=== PATIENT | male | born 1985 | race Hispanic/Latino ===

== ENCOUNTER 2021-04-10 09:36 | Emergency (ER) | payer OTHER ==
[~2021-04-10] VITALS: Ht 167.6 cm; Wt 74.8 kg
[2021-04-10 09:38] VITALS: BP 129/76
[2021-04-10 12:51] VITALS: BP 114/79
[2021-04-10] MEDS ORDERED: 0.9%NACL 1000ML 1,000 ML IV ONE (13:00)
[2021-04-10 14:03] LABS: HEMATOCRIT 48.4 % (42-54); MEAN CORPUSCULAR HEMOGLOBIN 29.7 pg (27.0-33.0); MEAN CORPUSCULAR HGB CONC 33.3 g/dL (32.0-36.0); MEAN CORPUSCULAR VOLUME 89.1 fL (79-99); PLATELET COUNT (AUTO) 166 K/uL (130-400); RED BLOOD CELL COUNT(AUTO) 5.43 MIL/uL (4.50-6.20); RED CELL DISTRIBUTION WIDTH 12.8 % (11.0-15.5); WHITE BLOOD COUNT (AUTO) 4.8 K/uL (4.8-10.8)
[2021-04-10 14:15] LABS: CREATININE 1.1 mg/dL (0.5-1.5); POTASSIUM 3.6 mmol/L (3.5-5.1)
[2021-04-10 14:21] LABS: BILIRUBIN,TOTAL 0.5 mg/dL (0.2-1.0); TOTAL PROTEIN, SERUM 7.9 g/dL (6.0-8.3)
[2021-04-10 15:02] LABS: BAND NEUTROPHILS % (MANUAL) 3 % (0-2); LYMPHOCYTES % (MANUAL) 21 % (22-44); MAN.DIFF COMMENT-IMPRESSION MANUAL DIFFERENTIAL; MONOCYTES % (MANUAL) 10 % (2-9); SEGMENTED NEUTROPHILS % 66 % (40-70)
[2021-04-10] MEDS ORDERED: IVER3TAB PO (15:32)
[2021-04-10 15:42] VITALS: BP 109/66
== END 2021-04-10 16:04 | disposition home or self-care (01) ==
LOC: EDH 09:36
DX: U07.1 COVID-19 (principal); E86.0 Dehydration; J98.8 Other specified respiratory disorders; R55 Syncope and collapse
CPT/HCPCS: 36415; 71045; 80053; 85025; 87635; 96360; 99284; C9803; J7030